=== PATIENT | female | born 1990 | race Hispanic/Latino ===

== ENCOUNTER 2017-12-22 14:59 | Outpatient (CLI) | payer OTHER ==
--- NOTE | 2017-12-22 16:34 | ULT ---
OBSTETRICAL ULTRASOUND: 12/22/17 INDICATION: Evaluate size and dates. FINDINGS: There is a single live intrauterine gestation in transverse presentation with the head to the materna l left. Placenta is posterior and fundal in location without evidence of previa. Cardiac activity is noted at 157 beats per minute. The head, heart, stomach, kidneys, spine, cord insertion, lips and nose, three vessel cord and extremities appear within normal limits. The biparietal diameter measured 4.41 cm giving an estimated gestational age of 19 weeks and 2 days ( 11th percentile). The head circumference measures 16.64 cm giving an estimated gestational age of 19 weeks and 2 days ( 6th percentile). The abdominal circumference measures 14.07 cm with an estimated gestational age of 19 weeks and 3 day s (16th percentile). The femoral length is 3.32 cm giving an estimated gestational age of 20 weeks and 3 days (40th percen tile). The estimated weight is 315 grams plus/minus 47 grams (0 lb. 11 oz. plus/minus 2 oz.). (17th pe rcentile). The average gestational age by ultrasound is 19 weeks and 3 days. Estimated due date of 05/15/18. The estimated clinical age by date is 20 weeks and 3 days. Estimated due date of 05/08/18. IMPRESSION: 1. Single live intrauterine gestation with size and dates as above. 2. Visualized survey appeared within normal limits. POS: [facility]
== END 2017-12-22 15:00 | disposition home or self-care (01) ==
LOC: SCSULT 14:59
PROVIDERS: ATTEND Obstetrics & Gynecology
DX: Z34.02 Encounter for supervision of normal first pregnancy, second trimester (principal)
CPT/HCPCS: 76805

== ENCOUNTER 2018-03-25 14:35 | Day surgery (SDC) | payer OTHER ==
[2018-03-25 17:06] VITALS: BMI 27.8
[2018-03-25 17:07] LABS: Amnisure Test No Membranes Rupture (No Rupture)
[2018-03-25 17:08] LABS: Amnisure Internal Control QC ACCEPTABLE (ACCEPTABLE)
--- NOTE | 2018-03-25 18:04 | HP ---
TIME OF EVALUATION: Roughly 1620 hours to 1636 hours. LOCATION: Labor and Delivery Triage in bed A. This is a patient of Dr. Mueller at the [facility]. The patient is here for possible leakage of fluid for 1 week. Current gestational age 33 weeks and 6 days. HISTORY OF PRESENT ILLNESS: This is a 27-year-old, G1, P0, female with EDC of May 07, 2018, putting her at 33 weeks and [address] Mueller at the [facility]. She is here for possible leakage of fluid, but no gush of fluid and no vaginal bleeding. She says she has some moisture in the vagina, although she has not saturated any pads or underwear. She has good movement and there is no evidence of vaginal bleeding. She had intercourse yesterday. She states that she called the [facility] last week and told them that she may have some moisture in the vagina and was told to come in for evaluation; however, she did not come in until today. REVIEW OF SYSTEMS: Complete review of systems was checked and is otherwise negative unless specified in the HPI. She occasionally has some nausea, but it is not severe, it is not daily, and it is without pain or radiation. The patient had sexual intercourse yesterday. PAST MEDICAL HISTORY: Negative. PAST SURGICAL HISTORY: She had a breast cystectomy. SOCIAL HISTORY: Negative for alcohol, tobacco, or drug use. PHYSICAL EXAMINATION: VITAL SIGNS: Blood pressure is 117/61, pulse is 60 and she is afebrile. GENERAL: Clinically, she is in no acute distress. : Uterus is soft and nontender. Uterus size appropriate. I performed a sterile speculum exam after discussion with the patient's and who explained it to the patient, as I was not able to communicate with her due to a language barrier. Sterile speculum was performed and no fluid was seen in the vagina. She had a negative cough and a negative Valsalva test. I collected an Amnisure with the Q -tip in the vagina for 60 seconds per protocol. This has been sent off and pending. MONITORING: This patient was put on the monitor for 20 minutes with heart tones having a baseline of 130s with moderate variability and accelerations. There are no decelerations. Although, there is some urine irritability. There is no distinct contraction pattern noted. ASSESSMENT: This is a 27-year-old, G1, P0, at 33 weeks and 6 days with questionable leakage of fluid. Sterile speculum exam was negative. Nonstress test is reactive in the 130s. There are no contractions on tocodynamometer. Amnisure was collected and sent. Visually, her cervix is visually closed. PLAN: I did not suspect that she is ruptured. I will await the Amnisure result , but we will likely sent her home as the examination is negative. ADDENDUM: is negative Job ID: [id number] [facility]
== END 2018-03-25 17:30 | disposition home or self-care (01) ==
LOC: L&D/OP 14:35
PROVIDERS: ATTEND Obstetrics & Gynecology
DX: O47.03 False labor before 37 completed weeks of gestation, third trimester (principal); Z3A.33 33 weeks gestation of pregnancy
CPT/HCPCS: 84112; 99283

== ENCOUNTER 2018-03-26 14:57 | Outpatient (CLI) | payer OTHER ==
--- NOTE | 2018-03-26 16:15 | ULT ---
NONSTRESS BIOPHYSICAL PROFILE: 03/26/18 HISTORY: IUGR. COMPARISON: None. TECHNIQUE: Nonstress biophysical profile is performed. FINDINGS: There are heart tones with a rate of 139 beats per minute. Posterior fundal placenta is incompl etely evaluated. Current study does not assess for the presence or absence of previa due to shadowing , cephalic presentation. Cervical length cannot be assessed Amniotic fluid index is reported to be 13.9 cm. NONSTRESS BIOPHYSICAL PROFILE: tone - 2 breathing - 2 movement - 2 Amniotic fluid index - 2 Total score 8 out of 8. IMPRESSION: Nonstress biophysical profile with a total score of 8 out of 8. POS: [facility]
== END 2018-03-26 14:58 | disposition home or self-care (01) ==
LOC: SCSULT 14:57
DX: O36.5990 Maternal care for other known or suspected poor fetal growth, unspecified trimester, not applicable or unspecified (principal)
CPT/HCPCS: 76819

== ENCOUNTER 2018-04-08 10:09 | Outpatient (CLI) | payer OTHER ==
--- NOTE | 2018-04-08 12:22 | ULT ---
OB ULTRASOUND: History: Size and dates, 3rd trimester. FINDINGS: Single live intrauterine gestation is seen with measurements corresponding to an estimated gestationa l age of 34 weeks 3 days and GRAYSON of 05-17-18. The estimated weight is 2512 grams, (5 lbs 9 oz). measurements: BDP 8.41 cm 33 weeks 6 days HC 30.95 cm 34 weeks 4 days AC 30.76 cm 34 weeks 5 days FL 6.88 cm 35 weeks 2 days heart rate: 126 beats/minute. JOHN is 1.6 cm. Placenta is posterior without evidence of placenta previa. presentation is vertex. IMPRESSION: Single live intrauterine gestation of 34 weeks 3 days with GRAYSON of 05-17-18. POS: [facility]
== END 2018-04-08 10:10 | disposition home or self-care (01) ==
LOC: SCSULT 10:09
PROVIDERS: ATTEND Student in an Organized Health Care Education/Training Program
DX: Z34.03 Encounter for supervision of normal first pregnancy, third trimester (principal); Z3A.34 34 weeks gestation of pregnancy
CPT/HCPCS: 76805

== ENCOUNTER 2018-05-07 05:30 | Inpatient (IN) | payer MEDICAID, OTHER, SELFPAY ==
[2018-05-07] MEDS ORDERED: NS w/ Oxytocin 10 units 500 ML IV SCH (06:15)
[2018-05-07] MEDS ORDERED: Lidocaine 1% (PF) 30 ML VIAL SC PRN (06:15)
[2018-05-07] MEDS ORDERED: HYDROcodone/Acetaminophen 5/325 mg Tablet PO PRN ×2 (06:15)
[2018-05-07] MEDS ORDERED: Acetaminophen 500 MG TAB PO PRN (06:15)
[2018-05-07] MEDS ORDERED: Promethazine HCl 25 MG/ML VIAL IM PRN ×2 (06:15→11:25)
[2018-05-07] MEDS ORDERED: Ibuprofen 800 MG TAB PO PRN (06:15)
[2018-05-07] MEDS ORDERED: NS / Oxytocin 40 units/1000ml 1,000 ML IV PRN (06:15)
[2018-05-07] MEDS ORDERED: Ondansetron PF 4 MG/2 ML Vial IVP PRN ×2 (06:15→11:25)
[2018-05-07] MEDS ORDERED: Zolpidem Tartrate 5 MG TAB PO PRN (06:15)
[2018-05-07 07:57] LABS: Hemoglobin 11.5 g/dL (12.0-16.0); Mean Corpuscular HGB CONC 32.9 g/dL (32.0-36.0); Mean Corpuscular Hemoglobin 28.3 pg (27.0-31.0); Mean Corpuscular Volume 86.1 fL (78.0-98.0); Mean Platelet Volume 9.7 fL (7.4-10.4); Platelet Count 141 thou/uL (130-400); RBC Distribution Width 12.1 % (11.5-14.5); Red Blood Cell (RBC) Count 4.08 mill/uL (4.20-5.40); White Blood Cell (WBC) Count 9.5 thou/uL (4.8-10.8)
[2018-05-07 08:01] VITALS: BMI 27.4
[2018-05-07 08:34] LABS: Syphilis Antibody Nonreactive (Nonreactive); Syphilis Antibody Index 0.03 S/CO (<1.00 Non-Reactive)
[2018-05-07 09:00] LABS: HBSAg Index 0.17 S/CO (0-0.99); Hep B Surf Ag Non-Reactive S/CO (NonReactive)
[2018-05-07] MEDS ORDERED: Fentanyl 4 mcg/Bup 0.1% Cadd 100 ML ONE ×3 (10:33→23:31)
[2018-05-07] MEDS ORDERED: ePHEDrine/0.9% NaCl/PF SYRINGE 50 mg/10 ml SLOW IVP PRN (11:25)
[2018-05-07] MEDS ORDERED: diphenhydrAMINE 50 MG/ML VIAL IVP PRN (11:25)
[2018-05-07] MEDS ORDERED: Lactated Ringer's 500 ML IV PRN (11:25)
[2018-05-07] MEDS ORDERED: Acetaminophen 325 MG TAB PO PRN (11:25)
[2018-05-07] MEDS ORDERED: Eucerin (Mineral Oil/Petrolatum,White) 30 gm Jar TOP PRN (11:25)
[2018-05-07] MEDS ORDERED: Naloxone HCl 0.4 mg/ml Vial IVP PRN ×2 (11:25)
[2018-05-07] MEDS: Lactated Ringer's 1,000 ML IV SCH ×3 (11:28→21:02)
[2018-05-07] MEDS ORDERED: Communication Order-Pharmacy FS SCH (11:30)
[2018-05-07] MEDS: Fentanyl 4 mcg/Bupivacaine 0.1% Cassette 100 ML EPIDURAL SCH ×2 (18:36→23:36)
[2018-05-08] MEDS ORDERED: CEFAZOLIN 2 GM/50 ML BAG ONE (00:58)
[2018-05-08] MEDS ORDERED: Bicitra 30 ML UDCUP ONE (00:58)
[2018-05-08] MEDS ORDERED: CEFAZOLIN 2 GM/50 ML-DEXTROSE 2 GM in Premix Bag 1 BAG IVPB SCH (01:15)
[2018-05-08] MEDS ORDERED: CEFAZOLIN/Water 2 GM/20 ML SYRINGE SLOW IVP SCH (01:15)
[2018-05-08] MEDS ORDERED: Oxytocin 10 UNITS/ML VIAL ONE (01:21)
[2018-05-08] MEDS ORDERED: Dexamethasone 4 mg/ml Vial ONE (01:21)
[2018-05-08] MEDS ORDERED: Ondansetron PF 4 MG/2 ML Vial ONE ×2 (01:21→15:24)
[2018-05-08] MEDS ORDERED: Midazolam HCl 2 mg/2 ml Vial ONE (01:50)
[2018-05-08] MEDS ORDERED: Morphine PF 1 MG/ML SYR ONE (01:51)
[2018-05-08] MEDS ORDERED: Ketorolac Tromethamine 30 MG/ML VIAL IVP PRN ×2 (02:03→05:50)
[2018-05-08] MEDS ORDERED: Naloxone HCl 0.4 mg/ml Vial IV PRN ×2 (02:03→05:50)
[2018-05-08] MEDS ORDERED: Promethazine HCl 25 MG/ML VIAL IM PRN ×2 (02:03→05:51)
[2018-05-08] MEDS ORDERED: Meperidine HCl/PF 25 MG/ML VIAL SLOW IVP PRN (02:03)
[2018-05-08] MEDS ORDERED: diphenhydrAMINE 50 MG/ML VIAL IVP PRN ×2 (02:03→05:50)
[2018-05-08] MEDS ORDERED: HYDROmorphone 2 MG/ML VIAL SLOW IVP PRN (02:03)
[2018-05-08] MEDS ORDERED: Ondansetron HCl/PF 4 MG/2 ML Vial IVP PRN (02:03)
[2018-05-08] MEDS ORDERED: Naloxone HCl 0.4 mg/ml Vial IVP PRN ×4 (02:03→05:51)
[2018-05-08] MEDS ORDERED: Promethazine HCl 25 MG SUPP PR PRN (02:03)
[2018-05-08] MEDS ORDERED: Hydrocerin (Eucerin) Cream 120 gm Jar TOP PRN ×2 (02:03→05:50)
[2018-05-08] MEDS ORDERED: L&D-Morphine 4 MG/ML VIAL SLOW IVP PRN (02:03)
[2018-05-08] MEDS ORDERED: Ondansetron PF 4 MG/2 ML Vial IVP PRN ×3 (02:03→05:51)
[2018-05-08] MEDS ORDERED: Communication Order-Pharmacy FS SCH (02:15)
[2018-05-08] MEDS ORDERED: Ketorolac Tromethamine 30 MG/ML VIAL IVP SCH (02:15)
[2018-05-08] MEDS ORDERED: Lanolin Ointment 7 GM TUBE TOP PRN (02:47)
[2018-05-08] MEDS ORDERED: diphenhydrAMINE 25 MG CAP PO PRN (02:47)
[2018-05-08] MEDS ORDERED: NS / Oxytocin 40 units/1000ml 1,000 ML IV SCH (03:00)
[2018-05-08 05:52] LABS: Hemoglobin 12.2 g/dL (12.0-16.0); Mean Corpuscular HGB CONC 34.4 g/dL (32.0-36.0); Mean Corpuscular Hemoglobin 30.6 pg (27.0-31.0); Mean Platelet Volume 9.7 fL (7.4-10.4); Platelet Count 132 thou/uL (130-400); RBC Distribution Width 11.9 % (11.5-14.5)
[2018-05-08] MEDS: Ferrous Sulfate 325 MG TAB PO SCH ×2 (08:36→17:48)
[2018-05-08] MEDS: Docusate Calcium (SURFAK) 240 MG CAP PO SCH ×2 (08:37→21:22)
[2018-05-08] MEDS: Prenatal Vitamin 1 TAB PO SCH (08:37)
[2018-05-08] MEDS ORDERED: Adacel (T-DAP) 0.5 ML SYRINGE IM ONE (09:00)
[2018-05-08] MEDS ORDERED: Bupivacaine 0.25% HCL 30 ML VIAL ONE (11:11)
[2018-05-08] MEDS ORDERED: Bupivacaine HCl 0.25%/Epi 0.0005/PF 10 ML VIAL FS ONE (11:11)
[2018-05-08] MEDS: Ibuprofen 800 MG TAB PO SCH ×2 (14:37→21:20)
[2018-05-08] MEDS: HYDROcodone/Acetaminophen 5/325 mg Tablet PO PRN (14:38)
[2018-05-08] MEDS ORDERED: Dexamethasone 20 MG/5 ML VIAL ONE (15:24)
[2018-05-08] MEDS: Simethicone Chewable 80 MG TAB PO PRN (21:20)
[2018-05-09] MEDS: HYDROcodone/Acetaminophen 5/325 mg Tablet PO PRN ×4 (00:18→20:27)
[2018-05-09] MEDS: Simethicone Chewable 80 MG TAB PO PRN ×2 (04:36→20:28)
[2018-05-09] MEDS: Ibuprofen 800 MG TAB PO SCH ×3 (05:50→21:34)
[2018-05-09] MEDS: Prenatal Vitamin 1 TAB PO SCH (08:17)
[2018-05-09] MEDS: Docusate Calcium (SURFAK) 240 MG CAP PO SCH ×2 (08:17→20:27)
[2018-05-09] MEDS: Ferrous Sulfate 325 MG TAB PO SCH ×2 (09:35→17:49)
--- NOTE | 2018-05-09 13:55 | OP ---
DATE OF PROCEDURE: 05/08/2018 ADDENDUM: I was present and scrubbed to assist the uncomplicated primary with Dr. Aubrie Ziegler. Please see her note for full details. Job ID: [id number]
[2018-05-10] MEDS: Ibuprofen 800 MG TAB PO SCH ×2 (05:45→13:49)
[2018-05-10] MEDS: HYDROcodone/Acetaminophen 5/325 mg Tablet PO PRN ×3 (05:49→13:49)
[2018-05-10 07:39] VITALS: BP 119/70; TEMP 98.4
[2018-05-10] MEDS: Ferrous Sulfate 325 MG TAB PO SCH (07:45)
[2018-05-10] MEDS: Docusate Calcium (SURFAK) 240 MG CAP PO SCH (09:21)
[2018-05-10] MEDS: Prenatal Vitamin 1 TAB PO SCH (09:21)
--- NOTE | 2018-05-18 12:01 | DN ---
DATE OF PROCEDURE: 05/07/2018 PREOPERATIVE DIAGNOSES: 1. A 28-year-old G1 at 40 weeks' gestation with an induction of labor for date by Pitocin. 2. Artificial rupture of membranes, which was clear. 3. GBS negative. 4. Arrest of descent with maternal exhaustion and cephalopelvic disproportion. 5. Failed vacuum-assisted delivery. PROCEDURES PERFORMED: 1. Primary low transverse section. 2. Vacuum-assist, unsuccessful. CLINICAL HISTORY: This patient is a 28-year-old G1 female, who presented to labor and delivery for a scheduled induction of labor for dates. The patient was 40+ weeks and had been counseled on induction of labor. There was a social and language barrier. Her mostly did the interpreting for her when the deferred to the . The patient was checked and noted to be 1.5 cm at the initiation of the induction. She was started on Pitocin and she had artificial rupture of membranes with clear fluid. The patient did request an epidural for maternal analgesia, which despite her complaints appeared to give her adequate anesthesia. It also appeared that the patient had an inappropriate expectation for delivery, which was made it difficult to assist and comfort the patient. She did reach complete cervical dilation in +2 station with laboring down and was counseled and coached to push. The patient pushed for 1-1/2 hours with poor maternal effort. The physician then came in and coached the patient as well. She was able to reorient herself and give some better effort with coaching. A vacuum was offered for assistance with delivery; however, there was no descent after 2 pulls and no popoff. Also, the category 1 tracing become category 2 with a deceleration with one of the pull. The patient was then counseled for a primary low transverse section. The Pitocin was turned off, and the patient was able to proceed to the operating room after being prepped for surgery. DESCRIPTION OF PROCEDURE: Once the patient was prepped and draped and doppler tones were obtained in the normal range, the patient was tested for anesthesia, which was noted to be adequate by vital signs and other features. The incision was made in the lower abdomen in the Pfannenstiel manner. This was carried down to the fascia. The fascia was nicked in the midline, and the incision was extended with sharp dissection. The superior border was elevated with combination of blunt and sharp dissection. Then, the inferior edge was dissected off the rectus and pyramidalis muscle. The muscles were then in the midline, and the peritoneum was breached with the surgeon's finger. This incision was then extended with traction, and the bladder blade was placed. The bladder flap was created, and the surface of the uterus was developed in the lower uterine segment. The incision was then made on the uterus. This incision was extended. The surgeon's hand was placed into the uterus after noting clear amniotic fluid, and the vertex was lifted from deep in the vagina to the incision and delivered through the incision. The anterior shoulder followed by the posterior shoulder followed by the remainder of the infant's body was delivered. There was a loose cord around the body. The cord was doubly clamped and then cut, and the was handed off to the nurses attending to the delivery. The cord blood was obtained, and a section of the cord was taken for cord gas; however, it was noted that there was not enough blood in the small cord that appeared short and thin. The placenta was then manually removed from the uterus, and the uterus was exteriorized and cleansed from all debris. The incision was then closed in a running locking fashion with excellent hemostasis. A second imbricating closure was performed, and then the bladder flap was reapproximated over this incision with excellent hemostasis. The gutters were cleansed off all debris. The Seprafilm was placed over the anterior surface of the uterus and then then uterus was placed back into the abdomen. The peritoneum was closed in a running fashion and the rectus muscles were reapproximated with a loose [id number] sutures with excellent hemostasis. The prefascial gutters were cleansed and then the fascia was closed in a running fashion with excellent hemostasis. The subcutaneous tissues were copiously irrigated and Bovie cautery was used to correct any further bleeding. The subcutaneous tissues were then reapproximated to close the space with multiple interrupted sutures and then the skin was closed with a 4-0 Monocryl. Steri-Strips and Mastisol were placed over this incision and a pressure dressing with Telfa and 4x4s with Tegaderm closure was placed. The patient tolerated the procedure well and was cleansed, re-draped, and the uterus was expressed and then was able to transfer over to a gurney after being cleansed of all debris and then transferred to the postsurgical unit. All needle, sponge, lap, and instrument counts were correct x2 at the end of the procedure. The estimated blood loss was 500. The quantitative blood loss was reported as 680. The again was a live born male, weighing 7 pounds and 2 ounces, with Apgars of 3 and 9 at 1 and 5 minutes respectively. There were no other issues surrounding this delivery. Job ID: [id number]
== END 2018-05-10 14:20 | disposition home or self-care (01) | DRG 788 ==
LOC: L&D 06:22 → 3SW 05-08 05:17
PROVIDERS: ADMIT Obstetrics & Gynecology; ATTEND Obstetrics & Gynecology
PROC: 10D00Z1 Extraction of Products of Conception, Low, Open Approach (ICD-10-PCS; principal; 2018-05-08)
PROC: 4A1HXCZ Monitoring of Products of Conception, Cardiac Rate, External Approach (ICD-10-PCS; 2018-05-08)
PROC: 4A1HXFZ Monitoring of Products of Conception, Cardiac Rhythm, External Approach (ICD-10-PCS; 2018-05-08)
PROC: 10907ZC Drainage of Amniotic Fluid, Therapeutic from Products of Conception, Via Natural or Artificial Opening (ICD-10-PCS; 2018-05-08)
DX: O62.1 Secondary uterine inertia (principal); O76 Abnormality in fetal heart rate and rhythm complicating labor and delivery; O66.5 Attempted application of vacuum extractor and forceps; O69.81X0 Labor and delivery complicated by cord around neck, without compression, not applicable or unspecified; Z3A.40 40 weeks gestation of pregnancy; Z37.0 Single live birth; O75.81 Maternal exhaustion complicating labor and delivery; O99.02 Anemia complicating childbirth; D64.9 Anemia, unspecified
CPT/HCPCS: 36415; 51702; 85027; 86780; 86850; 86900; 86901; 87340; 88307; 90471; 90686; G0008; J1100; J1200; J1885; J2001; J2250; J2274; J2405; J2590; S0020

== ENCOUNTER 2019-11-21 09:16 | Outpatient (CLI) | payer OTHER ==
[2019-11-22 14:17] LABS: SARS-CoV-2 MS2 Positive; SARS-CoV-2 N Gene Negative; SARS-CoV-2 S Gene Negative; SARS-CoV-2 by NAA Not Detected (NotDetected); SARS-CoV-2 orf1ab Negative
== END 2019-11-21 09:17 | disposition home or self-care (01) ==
LOC: SCSLAB 09:16
PROVIDERS: ATTEND Obstetrics & Gynecology
DX: Z01.812 Encounter for preprocedural laboratory examination (principal); Z11.59 Encounter for screening for other viral diseases
CPT/HCPCS: 87635; U0003